=== PATIENT | female | born 1950 | race Hispanic/Latino ===

== ENCOUNTER → 2018-09-22 | Outpatient (CLI) | payer MEDICARE ==
--- NOTE | 2018-09-16 12:20 | NUR ---
PT WAS A NO SHOW FOR EXAM ON THIS DATE
[~2018-09-22] VITALS: Ht 154.9 cm; Wt 83.9 kg
[~2018-09-22] MED LIST: REGADENOSON 0.4 MG/5 ML PF SYG IVP SCH
== END | disposition home or self-care (01) ==
LOC: SHCH 10:00
PROVIDERS: ATTEND Internal Medicine Cardiovascular Disease
DX: I25.119 Atherosclerotic heart disease of native coronary artery with unspecified angina pectoris (principal); I42.9 Cardiomyopathy, unspecified; I05.9 Rheumatic mitral valve disease, unspecified
CPT/HCPCS: 78452; 93017; 96374; A9500 ×2; J2785

== ENCOUNTER → 2021-10-10 | Outpatient (CLI) | payer MEDICARE | END | disposition home or self-care (01) | LOC: SHCH 08:15 | PROVIDERS: ATTEND Internal Medicine Cardiovascular Disease | DX: Z01.810 Encounter for preprocedural cardiovascular examination (principal); I25.119 Atherosclerotic heart disease of native coronary artery with unspecified angina pectoris; R07.9 Chest pain, unspecified; I10 Essential (primary) hypertension; E83.42 Hypomagnesemia; E78.5 Hyperlipidemia, unspecified; E11.9 Type 2 diabetes mellitus without complications; Z79.4 Long term (current) use of insulin; Z79.899 Other long term (current) drug therapy; Z95.2 Presence of prosthetic heart valve | CPT/HCPCS: 78452; 93017; J2785; A9500 ×2; 96374 ==

== ENCOUNTER → 2023-07-19 | Outpatient (CLI) | payer OTHER, MEDICARE ==
[2023-07-19 14:22] LABS: CREATININE 0.8 mg/dL (0.5-1.0)
== END | disposition home or self-care (01) ==
LOC: LAB 12:45
PROVIDERS: ATTEND Internal Medicine Gastroenterology
DX: K29.80 Duodenitis without bleeding (principal); R19.00 Intra-abdominal and pelvic swelling, mass and lump, unspecified site
CPT/HCPCS: 36415; 82565; 82784; 83516; 84520; 86231; 86364

== ENCOUNTER → 2023-07-30 | Outpatient (CLI) | payer OTHER, MEDICARE ==
[~2023-07-30] MED LIST changes: +IOHEXOL 350 MG/ML 100ML INFUS..BTL IV ONE; -REGADENOSON 0.4 MG/5 ML PF SYG IVP SCH
== END | disposition home or self-care (01) ==
LOC: RAH 08:02
PROVIDERS: ATTEND Internal Medicine Gastroenterology
DX: R16.2 Hepatomegaly with splenomegaly, not elsewhere classified (principal); R19.00 Intra-abdominal and pelvic swelling, mass and lump, unspecified site; I70.90 Unspecified atherosclerosis; K42.9 Umbilical hernia without obstruction or gangrene; K44.9 Diaphragmatic hernia without obstruction or gangrene; M47.815 Spondylosis without myelopathy or radiculopathy, thoracolumbar region; M48.061 Spinal stenosis, lumbar region without neurogenic claudication; R16.0 Hepatomegaly, not elsewhere classified; R16.1 Splenomegaly, not elsewhere classified; Z90.49 Acquired absence of other specified parts of digestive tract
CPT/HCPCS: 74178; Q9967

== ENCOUNTER → 2023-09-05 | Outpatient (CLI) | payer OTHER, MEDICARE ==
[2023-09-05 16:37] LABS: ALBUMIN 3.7 g/dL (3.5-5.0); BILIRUBIN,TOTAL 0.9 mg/dL (0.2-1.0); CREATININE 0.7 mg/dL (0.5-1.0); POTASSIUM 3.9 mmol/L (3.5-5.1); TOTAL PROTEIN, SERUM 7.3 g/dL (6.0-8.3)
== END | disposition home or self-care (01) ==
LOC: LAB 11:42
PROVIDERS: ATTEND Nurse Practitioner Acute Care
DX: I10 Essential (primary) hypertension (principal)
CPT/HCPCS: 36415; 80053; 83880

== ENCOUNTER → 2024-10-01 | Outpatient (CLI) | payer OTHER, MEDICAID ==
--- NOTE | 2024-10-02 08:37 | HMCIMG ---
EXAM: CT Abdomen without and with IV contrast CLINICAL HISTORY: Right upper quadrant pain. TECHNIQUE: Thin collimated axial CT images of the abdomen with intravenous contrast were obtained with sagittal and coronal reformatted images also submitted. CT scan is done according to ALARA (As Low As Reasonably Achievable). COMPARISON: Prior CT abdomen dated 07/30/23. FINDINGS: Unremarkable visualized lung parenchyma. No focal abnormality within the pancreas, spleen, adrenals, or kidneys. Small liver with diffuse surface nodularity and inhomogeneous density, suggesting liver cirrhosis. Multiple small, innumerable hypodense foci in both lobes of the liver, suggesting regenerative nodules. No evidence of a hepatic mass. Prominent portal vein with recanalization of the umbilical vein. Multiple prominent venous collateral vessels in the upper abdomen. The gallbladder is not visualized, likely surgically removed. There is no obvious bowel wall thickening. Bowel loops are normal in caliber without evidence of obstruction or ileus. Abdominal vessels are patent. No lymphadenopathy. Moderate ascites. There is no acute osseous abnormality. Multilevel thoracolumbar spondylosis. IMPRESSION: Liver cirrhosis with multiple small, innumerable hypodense foci in both lobes of the liver, suggesting regenerative nodules. There is an interval worsening of the liver parenchymal disease. Portal hypertension with recanalization of the umbilical vein and multiple venous collateral vessels in the upper abdomen. Moderate ascites. A new finding. /Edis
== END | disposition home or self-care (01) ==
LOC: RAH 08:05
PROVIDERS: ATTEND Internal Medicine Gastroenterology
DX: K74.60 Unspecified cirrhosis of liver (principal); R10.11 Right upper quadrant pain; R18.8 Other ascites; K76.6 Portal hypertension; M47.815 Spondylosis without myelopathy or radiculopathy, thoracolumbar region
CPT/HCPCS: 74170; Q9967

== ENCOUNTER → 2024-10-12 | Outpatient (CLI) | payer OTHER, MEDICAID ==
[2024-10-12 08:37] LABS: IMMATURE GRANULOCYTE ABSOLUTE 0.03 K/uL (0-1); NUCLEATED RED BLOOD CELLS 0.0 % (0.0-0.19); PLATELET COUNT (AUTO) 157 K/uL (130-400); RED BLOOD CELL COUNT(AUTO) 3.41 MIL/uL (4.00-5.50); RED CELL DISTRIBUTION WIDTH 17.2 % (11.0-15.5); WHITE BLOOD COUNT (AUTO) 9.8 K/uL (4.8-10.8)
[2024-10-12 08:47] LABS: INR 1.54 (0.85-1.15)
[2024-10-12 08:53] LABS: ASPARTATE AMINOTRANSFERASE 28.0 U/L (10-37); CREATININE 1.4 mg/dL (0.5-1.0); GLOMERULAR FILTR. RATE CALC 40.0 mL/min (>90); GLUCOSE,RANDOM 150.0 mg/dL (70-105); SODIUM SERUM 136.0 mmol/L (136-145); TOTAL PROTEIN, SERUM 6.1 g/dL (6.0-8.3); UREA NITROGEN, BLOOD 22.0 mg/dL (7-18)
--- NOTE | 2024-10-12 10:55 | NUR ---
U/S GD PARACENTESIS PROCEDURE PERFORMED BY DR SARGENT. PUNCTURE SITE RLQ AND PATIENT TOLERATED PROCEDURE WELL. TOTAL REMOVED 3.6 LITERS OF YELLOW CLOUDY FLUID. SPECIMEN SENT TO LAB. END OF PROCEDURE AT 1035. CATHETER REMOVED AND DRESSING APPLIED. NO BLEEDING NOTED. DISCHARGE INSTRUCTIONS GIVEN TO PATIENT AND DAUGHTER IN LAW. VERBALIZED UNDERSTANDING. DISCHARGED VIA WHEELCHAIR. AAO X3 WITH NO C/O PAIN. [facility] CALLED BY DAUGHTER IN LAW.
[2024-10-12 16:01] LABS: ALBUMIN,BODY FLUID < 0.6 g/dL; TOTAL PROTEIN,BODY FLUID < 2.0 g/dL
--- NOTE | 2024-10-12 16:04 | HMCIMG ---
US ABDOMINAL PARACENTESIS IR REASON: ASCITES TECHNIQUE: Paracentesis was performed with ultrasound guidance. The puncture site was selected in the Right lower quadrant and overlying skin prepped and draped in a sterile fashion. 1% Xylocaine infiltration was performed. Catheter was placed in the fluid using trocar technique. 3.5 L were removed. Fluid sample was submitted for laboratory evaluation. The patient showed no evidence of complication during the procedure. Patient tolerated procedure well. IMPRESSION: 1. Ultrasound-guided paracentesis.
[2024-10-12 17:19] LABS: BODY FLUID RBC 51 /cu. mm.; BODY FLUID WBC 81 /cu. mm.
[2024-10-12 17:22] LABS: SPECIMENTYPE,BODY FLUID ASCITES
[2024-10-12 17:23] LABS: APPEARANCE BODY FLUID CLEAR (CLEAR); COLOR,BODY FLUID YELLOW (LT YELLOW)
[2024-10-12 17:24] LABS: TOTAL VOLUME,BODY FLUID 3600 mL
[2024-10-12 20:41] LABS: BF LYMPHOCYTE 14 %; BF MACROPHAGE 4; BF MESOTHELIAL 4 %; BF MONOCYTE 2 %; BF NEUTROPHIL 76.0 %; BF TOTAL CELLS COUNTED 100
== END | disposition home or self-care (01) ==
LOC: RAH 08:08
PROVIDERS: ATTEND Internal Medicine Gastroenterology
DX: R18.8 Other ascites (principal); Z79.01 Long term (current) use of anticoagulants
CPT/HCPCS: 49083; 84157; 80053; 85025; 89051; 85610; 85730; 87071; 87076; 87205; 82042; 36415; C1729